=== PATIENT | female | born 1955 | race Hispanic/Latino ===

== ENCOUNTER 2016-07-31 11:58 | Emergency (ER) | payer MEDICAID ==
[2016-07-31 12:16] VITALS: TEMP 98.2; O2SAT 100
[2016-07-31 12:25] VITALS: BMI 40.4
--- NOTE | 2016-07-31 12:56 | ED PDOC ---
Arrival/HPI - General Chief Complaint: Trauma Time Seen by Provider: 07/31/16 12:14 Historian: Patient - History of Present Illness Narrative History of Present Illness (Text): 07/31/16 12:26 Janelle Smith is a 61 year old female who presents to the emergency department complaining of possible injury to ear and pain to right-sided head, shoulder, arm and hip s/p mechanical fall prior to arrival. Patient states that she tripped over something at home and smacked her head against the edge of a door. 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 She notes that she hears less in her right ear as well. Patient endorses that she took her daily medications this morning but did not take any pain medications after fall. Patient denies any malocclusion of the jaw, vision changes, or any other complaint at this time. PMD: Dr. Witt Time/Duration: Prior to Arrival Symptom Onset: Sudden Symptom Course: Unchanged Activities at Onset: Light Context: Home Past Medical History - Provider Review Nursing Documentation Reviewed: Yes - Infectious Disease Hx of Infectious Diseases: None - Tetanus Immunization Tetanus Immunization: Unknown - Pulmonary Hx Asthma: Yes - Musculoskeletal/Rheumatological Hx Arthritis: Yes - Gastrointestinal Other/Comment: Gastroproesis - Psychiatric Hx Substance Use: No - Past Surgical History Past Surgical History: No Previous - Surgical History Hx Dilation and Curettage: Yes Hx Tonsillectomy: Yes Other/Comment: R ear tube - Anesthesia Hx Anesthesia: Yes Hx Anesthesia Reactions: No Hx Malignant Hyperthermia: No - Suicidal Assessment Feels Threatened In Home Enviroment: No Family/Social History - Physician Review Nursing Documentation Reviewed: Yes Family/Social History: No Known Family HX Smoking Status: Never Smoked Hx Alcohol Use: No Hx Substance Use: No Hx Substance Use Treatment: No Allergies/Home Meds Allergies/Adverse Reactions: Allergies Sulfa (Sulfonamide Antibiotics) Allergy (Verified 06/09/15 16:01) bacitracin Allergy (Uncoded 06/09/15 16:01) dust Allergy (Uncoded 04/14/14 22:08) ITCHING mold Allergy (Uncoded 04/14/14 22:08) ITCHING Home Medications: Home Meds Medication Instructions Recorded Confirmed Fluticasone/Salmeterol 100/50 1 dsk IH BID 09/02/14 09/02/14 [Advair Diskus 100/50] Montelukast [Singulair] 10 mg PO DAILY 09/02/14 09/02/14 Omeprazole [Prilosec] 40 mg PO DAILY 09/02/14 09/02/14 Tiotropium [place] Inhaler 1 puff IH DAILY 09/02/14 09/02/14 [Spiriva Inhalation Handihaler Device] Review of Systems - Physician Review All systems were reviewed & negative as marked: Yes - Review of Systems Constitutional: Other (pain to right side of head). absent: Fevers, Night Sweats Eyes: absent: Vision Changes ENT: Hearing Changes, Other (possible injury to ear) Respiratory: absent: SOB Cardiovascular: absent: Chest Pain Gastrointestinal: absent: Abdominal Pain Genitourinary Female: absent: Urine Output Changes Musculoskeletal: Other (Pain to right shoulder, arm, and hip). absent: Back Pain, Neck Pain Skin: absent: Rash Neurological: absent: Headache Endocrine: absent: Polyuria Hemo/Lymphatic: absent: Easy Bleeding Psychiatric: absent: Depression Physical Exam - Physical Exam Narrative Physical Exam (Text): Constitutional: No acute distress. Head: Normocephalic. Atraumatic. Eyes: PERRL. EOMI without diplopia. ENT: Moist mucous membranes. Cerumen in right ear. Tympanic membrane and ear tube not visualized. Neck: No midline tenderness. Supple. Cardiovascular: Regular rate. Chest: No tenderness. Respiratory: Clear to auscultation bilaterally. GI: Soft. Nontender. Nondistended. Back: No midline tenderness. No CVA tenderness. Musculoskeletal: Tenderness to mid clavicle over AC joints. Full ROM of shoulder, elbow, wrist w/o swelling or tenderness. Tenderness over right hip and right thigh. Skin: No rash. Neurologic: Alert, no focal deficit. Sensation to light touch intact to bilateral face. Vital Signs Reviewed: Yes Vital Signs Temp Pulse Resp BP Pulse Ox 07/31/16 12:13 98.2 F 76 18 151/100 H 100 Temperature: Afebrile Blood Pressure: Hypertensive Pulse: Regular Respiratory Rate: Normal Appearance: Positive for: Well-Appearing, Non-Toxic, Comfortable Pain Distress: None Mental Status: Positive for: Alert and Oriented X 3 Medical Decision Making ED Course and Treatment: 07/31/16 12:26 Impression: 61 year old female complaining of possible injury to ear and pain to right- sided head, shoulder, arm and hip s/p mechanical fall prior to arrival. Plan: -- Head CT w/o contrast -- Right clavicle X-ray -- Right Femur X-ray -- Right Hip and pelvis X-ray -- Right shoulder X-ray -- Reassess and disposition Prior Visits: Notes and results from previous visits were reviewed. Patient last seen in ED on 06/09/15 for lymphedema p/w chest pain x 4 hours. Patient left against medical advice. Progress Notes: 07/31/16 12:26 Patient denied any pain medication. 07/31/16 14:[address] w/o Contrast: Creator : Ravin Ron MD FINDINGS: HEMORRHAGE:No intracranial hemorrhage. BRAIN:No mass effect or edema. No atrophy or chronic microvascular ischemic changes. VENTRICLES:Unremarkable. No hydrocephalus. CALVARIUM:Unremarkable. PARANASAL SINUSES:Unremarkable as visualized. No significant inflammatory changes. MASTOID AIR CELLS:Unremarkable as visualized. No inflammatory changes. OTHER FINDINGS:None. IMPRESSION: Normal CT of the Head. 07/31/16 14:10 Right Clavicle X-ray: Creator : Ravin Ron MD FINDINGS: RIGHT CLAVICLE:No fracture or focal lesion. JOINTS:Right acromioclavicular and glenohumeral joints are grossly unremarkable. SOFT TISSUES:Grossly unremarkable. OTHER FINDINGS:None. IMPRESSION: Normal radiographs of the right clavicle. 07/31/16 14:11 Right Shoulder X-ray: Creator : Ravin Ron MD FINDINGS: BONES:Normal. No fracture. JOINTS:Normal. Glenohumeral and acromioclavicular joints preserved. No osteoarthritis. SOFT TISSUES:Normal. OTHER FINDINGS:None. IMPRESSION: Normal radiographs of the right shoulder. 07/31/16 14:15 Right Femur X-ray Creator : Ravin Ron MD FINDINGS: FEMUR:Normal. No fracture. SOFT TISSUES:Normal. OTHER FINDINGS:None. IMPRESSION: Unremarkable radiographs of the right femur. 07/31/16 14:17 Right Hip X-ray: Creator : Mike Ellis MD FINDINGS: BONES:Normal. No fracture. JOINTS:Mild and symmetrical degenerative changes. SOFT TISSUES:Normal. OTHER FINDINGS:None. IMPRESSION: No acute findings related to/accounting for the clinical presentation. 07/31/16 14:19 Patient resting in stretcher in no acute distress. Will discharge home, f/u ENT , return to ER for worsening pain, discharge from ear, vomiting, or any other problem. - RAD Interpretation Radiology Orders: 07/31/16 12:37 HEAD W/O CONTRAST [CT] Stat CLAVICLE RIGHT [RAD] Stat Femur Right [FEMUR MIN 2 VIEWS RT] [RAD] Stat HIP MIN 2V W/ PELVIS RT [RAD] Stat SHOULDER RIGHT [RAD] Stat - Scribe Statement The provider has reviewed the documentation as recorded by the Jereibrazia Lennon Provider Scribe Attestation: All medical record entries made by the Scribe were at my direction and personally dictated by me. I have reviewed the chart and agree that the record accurately reflects my personal performance of the history, physical exam, medical decision making, and the department course for this patient. I have also personally directed, reviewed, and agree with the discharge instructions and disposition. Disposition/Present on Arrival - Present on Arrival Any Indicators Present on Arrival: No History of DVT/PE: No History of Uncontrolled Diabetes: No Urinary Catheter: No History of Decub. Ulcer: No History Surgical Site Infection Following: None - Disposition Have Diagnosis and Disposition been Completed?: Yes Diagnosis: Fall, Multiple contusions Disposition Time: 14:20 Patient Plan: Discharge Condition: STABLE Discharge Instructions (ExitCare): Head Injury (ED) Referrals: Lexx Cottrell DO [Staff Provider] - Follow up with primary
--- NOTE | 2016-07-31 13:58 | CT ---
PROCEDURE: CT HEAD WITHOUT CONTRAST. HISTORY: fall, headstrike COMPARISON: 04/14/[address] TECHNIQUE: Axial computed tomography images were obtained through the head/brain without intravenous contrast. Radiation dose: Total exam DLP = 700 mGy-cm. This CT exam was performed using one or more of the following dose reduction techniques: Automated exposure control, adjustment of the mA and/or kV according to patient size, and/or use of iterative reconstruction technique. FINDINGS: HEMORRHAGE: No intracranial hemorrhage. BRAIN: No mass effect or edema. No atrophy or chronic microvascular ischemic changes. VENTRICLES: Unremarkable. No hydrocephalus. CALVARIUM: Unremarkable. PARANASAL SINUSES: Unremarkable as visualized. No significant inflammatory changes. MASTOID AIR CELLS: Unremarkable as visualized. No inflammatory changes. OTHER FINDINGS: None. IMPRESSION: Normal CT of the Head.
--- NOTE | 2016-07-31 14:10 | RAD ---
PROCEDURE: Radiographs of the Right Shoulder HISTORY: fall, shoulder pain COMPARISON: No prior. FINDINGS: BONES: Normal. No fracture. JOINTS: Normal. Glenohumeral and acromioclavicular joints preserved. No osteoarthritis. SOFT TISSUES: Normal. OTHER FINDINGS: None. IMPRESSION: Normal radiographs of the right shoulder.
--- NOTE | 2016-07-31 14:10 | RAD ---
PROCEDURE: Radiographs of the right clavicle. HISTORY: fall, clavicular tenderness COMPARISON: None. FINDINGS: RIGHT CLAVICLE: No fracture or focal lesion. JOINTS: Right acromioclavicular and glenohumeral joints are grossly unremarkable. SOFT TISSUES: Grossly unremarkable. OTHER FINDINGS: None. IMPRESSION: Normal radiographs of the right clavicle.
--- NOTE | 2016-07-31 14:13 | RAD ---
PROCEDURE: Right Femur Radiographs. HISTORY: fall, lateral thigh pain COMPARISON: None. TECHNIQUE: AP and Lateral Radiographs of the right femur. FINDINGS: FEMUR: Normal. No fracture. SOFT TISSUES: Normal. OTHER FINDINGS: None. IMPRESSION: Unremarkable radiographs of the right femur.
--- NOTE | 2016-07-31 14:13 | RAD ---
PROCEDURE: Right Hip Radiographs. HISTORY: fall, R hip pain COMPARISON: None. FINDINGS: BONES: Normal. No fracture. JOINTS: Mild and symmetrical degenerative changes. SOFT TISSUES: Normal. OTHER FINDINGS: None. IMPRESSION: No acute findings related to/accounting for the clinical presentation.
[2016-07-31 15:04] VITALS: BP 147/90; PULSE 72; RESP 16
== END 2016-07-31 14:55 | disposition home or self-care (01) ==
LOC: ED 11:58
DX: S40.011A Contusion of right shoulder, initial encounter (principal); S70.01XA Contusion of right hip, initial encounter; S70.11XA Contusion of right thigh, initial encounter; W01.198A Fall on same level from slipping, tripping and stumbling with subsequent striking against other object, initial encounter; Y92.009 Unspecified place in unspecified non-institutional (private) residence as the place of occurrence of the external cause

== ENCOUNTER 2016-08-16 17:03 | Emergency (ER) | payer MEDICAID ==
[2016-08-16 17:03] VITALS: BMI 40.4
[2016-08-16 17:12] VITALS: BP 131/70; PULSE 78; RESP 19; TEMP 97.9; O2SAT 97
--- NOTE | 2016-08-16 17:34 | ED PDOC ---
Arrival/HPI - General Historian: Patient <Charleen Covarrubiasew - Last Filed: 08/16/16 17:36> - History of Present Illness Time/Duration: Other (3 days) Symptom Onset: Sudden Symptom Course: Unchanged Context: Home <Chau Persaud - Last Filed: 08/16/16 17:52> - General Chief Complaint: Trauma Time Seen by Provider: 08/16/16 17:08 - History of Present Illness Narrative History of Present Illness (Text): 08/16/16 17:32 This is a 61 yo F with PMH of asthma that presents to the ED with head pain s/p minor trauma from hitting head on counter while standing up 3 days ago. Pt had LOC. Denies dizziness, DURHAM, vision changes, weakness, chest pain, sob, nausea or vomiting. She also denies taking any "blood thinners" including ASA. PMD: Dr. Witt (Preston Covarrubias) Past Medical History - Provider Review Nursing Documentation Reviewed: Yes - Infectious Disease Hx of Infectious Diseases: None - Tetanus Immunization Tetanus Immunization: Unknown - Reproductive Menopause: Yes - Cardiac Hx Cardiac Disorders: No - Pulmonary Hx Respiratory Disorders: Yes Hx Asthma: Yes - Neurological Hx Neurological Disorder: No - HEENT Hx HEENT Disorder: No - Renal Hx Renal Disorder: No - Endocrine/Metabolic Hx Endocrine Disorders: No - Hematological/Oncological Hx Blood Disorders: No - Integumentary Hx Dermatological Disorder: No - Musculoskeletal/Rheumatological Hx Musculoskeletal Disorders: Yes Hx Arthritis: Yes - Gastrointestinal Hx Gastrointestinal Disorders: Yes Other/Comment: Gastroproesis - Genitourinary/Gynecological Hx Genitourinary Disorders: No - Psychiatric Hx Psychophysiologic Disorder: No Hx Substance Use: No - Past Surgical History Past Surgical History: No Previous - Surgical History Hx Dilation and Curettage: Yes Hx Tonsillectomy: Yes Other/Comment: R ear tube - Anesthesia Hx Anesthesia: Yes Hx Anesthesia Reactions: No Hx Malignant Hyperthermia: No - Suicidal Assessment Feels Threatened In Home Enviroment: No <Preston Covarrubias - Last Filed: 08/16/16 17:36> Family/Social History - Physician Review Nursing Documentation Reviewed: Yes Family/Social History: No Known Family HX Smoking Status: Never Smoked Hx Alcohol Use: No Hx Substance Use: No Hx Substance Use Treatment: No <Preston Covarrubias - Last Filed: 08/16/16 17:36> Allergies/Home Meds <Preston Covarrubias - Last Filed: 08/16/16 17:36> <Chau Persaud - Last Filed: 08/16/16 17:52> Allergies/Adverse Reactions: Allergies Sulfa (Sulfonamide Antibiotics) Allergy (Verified 08/16/16 17:07) RASH bacitracin Allergy (Uncoded 08/16/16 17:07) RASH dust Allergy (Uncoded 08/16/16 17:07) ITCHING mold Allergy (Uncoded 08/16/16 17:07) ITCHING Home Medications: Home Meds Medication Instructions Recorded Confirmed Fluticasone/Salmeterol 100/50 1 dsk IH BID 09/02/14 08/16/16 [Advair Diskus 100/50] Montelukast [Singulair] 10 mg PO DAILY 09/02/14 08/16/16 Omeprazole [Prilosec] 40 mg PO DAILY 09/02/14 08/16/16 Tiotropium [place] Inhaler 1 puff IH DAILY 09/02/14 08/16/16 [Spiriva Inhalation Handihaler Device] Review of Systems - Review of Systems Constitutional: Normal Eyes: Normal ENT: Normal Respiratory: Normal Cardiovascular: Normal Gastrointestinal: Normal Genitourinary Female: Normal Musculoskeletal: Normal Skin: Normal Neurological: Normal Endocrine: Normal Hemo/Lymphatic: Normal Psychiatric: Normal <Preston Covarrubias - Last Filed: 08/16/16 17:36> Physical Exam Temperature: Afebrile Blood Pressure: Normal Pulse: Regular Respiratory Rate: Normal Appearance: Positive for: Well-Appearing, Non-Toxic, Comfortable Pain Distress: None Mental Status: Positive for: Alert and Oriented X 3 - Systems Exam Head: Present: Atraumatic, Normocephalic, Tenderness (to palpation over area where she hit) Pupils: Present: PERRL Extroacular Muscles: Present: EOMI Mouth: Present: Moist Mucous Membranes Respiratory/Chest: Present: Clear to Auscultation, Good Air Exchange. No: Respiratory Distress Cardiovascular: Present: Regular Rate and Rhythm, Normal S1, S2 Abdomen: Present: Normal Bowel Sounds. No: Tenderness, Distention Upper Extremity: Present: NORMAL PULSES Lower Extremity: Present: NORMAL PULSES Neurological: Present: Speech Normal, Motor Func Grossly Intact Skin: Present: Warm, Dry Psychiatric: Present: Alert, Oriented x 3 <Preston Covarrubias - Last Filed: 08/16/16 17:36> Vital Signs Reviewed: Yes <Chau Persaud - Last Filed: 08/16/16 17:52> Vital Signs Temp Pulse Resp BP Pulse Ox 08/16/16 17:11 97.9 F 78 19 131/70 97 Medical Decision Making <Preston Covarrubias - Last Filed: 08/16/16 17:36> <Chau Persaud - Last Filed: 08/16/16 17:52> ED Course and Treatment: 08/16/16 17:40 61 to F with minor head trauma Plan: No neurological deficits, vision changes, DURHAM or any obvious trauma to area. Will discharge home with instructions to take OTC meds for the pain and follow up instructions Pt comfortable with plan (Preston Covarrubias) Patient Seen With Resident: In agreement with resident note which contains more details about the patient. Patient was seen and evaluated with resident. Came up with plan and treatment together. (Chau Persaud) Disposition/Present on Arrival - Present on Arrival Any Indicators Present on Arrival: No History of DVT/PE: No History of Uncontrolled Diabetes: No Urinary Catheter: No History of Decub. Ulcer: No History Surgical Site Infection Following: None - Disposition Have Diagnosis and Disposition been Completed?: Yes Disposition Time: 17:31 Patient Plan: Discharge <Preston Covarrubias - Last Filed: 08/16/16 17:36> <Chau Persaud - Last Filed: 08/16/16 17:52> - Disposition Diagnosis: Minor head injury Disposition: HOME/ ROUTINE Patient Problems: Current Active Problems Problem Status Onset Minor head injury Acute Condition: GOOD Discharge Instructions (ExitCare): Head Injury (ED) Additional Instructions: You were evaluated for a minor head injury. Take Tylenol or Advil for the pain. Please return to ED with any new or worsening symptoms. Referrals: Christiano Witt MD [Primary Care Provider] - Follow up with primary
== END 2016-08-16 17:15 | disposition home or self-care (01) ==
LOC: ED 17:03
DX: S09.90XA Unspecified injury of head, initial encounter (principal); W22.8XXA Striking against or struck by other objects, initial encounter; Y93.89 Activity, other specified; Y92.89 Other specified places as the place of occurrence of the external cause

== ENCOUNTER 2017-06-06 22:54 | Observation (INO) | payer MEDICAID ==
[2017-06-06 22:54] VITALS: BMI 40.4
--- NOTE | 2017-06-06 23:14 | ED PDOC ---
Arrival/HPI - General Time Seen by Provider: 06/06/17 23:03 Historian: Patient - History of Present Illness Narrative History of Present Illness (Text): 06/06/17 23:05 Janelle Smith is a 61 year old female, whose past medical history includes asthma, gastroparesis, GERD, and esophagitis, who presents to the Emergency department accompanied by spouse complaining of chest pain. Patient states while at home she was feeling unwell with associated dizziness and nausea when she began experiencing mid-sternal chest tightness. Patient reports some shortness of breath. Patient states she has not undergone a stress test in a long time. Patient denies any fever, chills, abdominal pain, vomiting, diarrhea , back pain, neck pain, headache, vision changes, focal neurological deficits, or any other complaints. Symptom Onset: Gradual Symptom Course: Unchanged Activities at Onset: Light Context: Home Past Medical History - Provider Review Nursing Documentation Reviewed: Yes - Infectious Disease Hx of Infectious Diseases: None - Tetanus Immunization Tetanus Immunization: Unknown - Cardiac Hx Cardiac Disorders: No - Pulmonary Hx Respiratory Disorders: Yes Hx Asthma: Yes - Neurological Hx Neurological Disorder: No - HEENT Hx HEENT Disorder: No - Renal Hx Renal Disorder: No - Endocrine/Metabolic Hx Endocrine Disorders: No - Hematological/Oncological Hx Blood Disorders: No - Integumentary Hx Dermatological Disorder: No - Musculoskeletal/Rheumatological Hx Musculoskeletal Disorders: Yes Hx Arthritis: Yes - Gastrointestinal Hx Gastrointestinal Disorders: Yes Other/Comment: Gastroproesis - Genitourinary/Gynecological Hx Genitourinary Disorders: No - Psychiatric Hx Psychophysiologic Disorder: No Hx Substance Use: No - Past Surgical History Past Surgical History: No Previous - Surgical History Hx Dilation and Curettage: Yes Hx Tonsillectomy: Yes Other/Comment: R ear tube - Anesthesia Hx Anesthesia: Yes Hx Anesthesia Reactions: No Hx Malignant Hyperthermia: No - Suicidal Assessment Feels Threatened In Home Enviroment: No Family/Social History - Physician Review Nursing Documentation Reviewed: Yes Family/Social History: Unknown Family HX Smoking Status: Never Smoked Hx Alcohol Use: No Hx Substance Use: No Hx Substance Use Treatment: No Allergies/Home Meds Allergies/Adverse Reactions: Allergies Sulfa (Sulfonamide Antibiotics) Allergy (Verified 06/06/17 23:14) RASH bacitracin Allergy (Uncoded 06/06/17 23:14) RASH dust Allergy (Uncoded 06/06/17 23:14) ITCHING mold Allergy (Uncoded 06/06/17 23:14) ITCHING Home Medications: Home Meds Medication Instructions Recorded Confirmed Fluticasone/Salmeterol 100/50 1 dsk IH BID 09/02/14 06/06/17 [Advair Diskus 100/50] Montelukast [Singulair] 10 mg PO DAILY 09/02/14 06/06/17 Omeprazole [Prilosec] 40 mg PO DAILY 09/02/14 06/06/17 Tiotropium [place] Inhaler 1 puff IH DAILY 09/02/14 06/06/17 [Spiriva Inhalation Handihaler Device] Review of Systems - Physician Review All systems were reviewed & negative as marked: Yes - Review of Systems Constitutional: Normal. absent: Fevers Eyes: Normal ENT: Normal Respiratory: SOB Cardiovascular: Chest Pain Gastrointestinal: Nausea. absent: Abdominal Pain, Vomiting Genitourinary Female: Normal. absent: Dysuria, Frequency, Hematuria, Urine Output Changes Musculoskeletal: Normal. absent: Back Pain, Neck Pain Skin: Normal Neurological: Dizziness Endocrine: Normal Hemo/Lymphatic: Normal Psychiatric: Normal Physical Exam Vital Signs Reviewed: Yes Vital Signs Temp Pulse Resp BP Pulse Ox 06/06/17 23:11 98.4 F 111 H 18 164/91 H 97 Temperature: Afebrile Blood Pressure: Hypertensive Pulse: Regular Respiratory Rate: Normal Appearance: Positive for: Well-Appearing, Non-Toxic, Comfortable Pain Distress: None Mental Status: Positive for: Alert and Oriented X 3 - Systems Exam Head: Present: Atraumatic, Normocephalic Pupils: Present: PERRL Extroacular Muscles: Present: EOMI Conjunctiva: Present: Normal Mouth: Present: Moist Mucous Membranes Neck: Present: Normal Range of Motion Respiratory/Chest: Present: Clear to Auscultation, Good Air Exchange. No: Respiratory Distress, Accessory Muscle Use Cardiovascular: Present: Regular Rate and Rhythm, Normal S1, S2. No: Murmurs Abdomen: Present: Normal Bowel Sounds. No: Tenderness, Distention, Peritoneal Signs Back: Present: Normal Inspection Upper Extremity: Present: Normal Inspection. No: Cyanosis, Edema Lower Extremity: Present: Normal Inspection. No: Edema Neurological: Present: GCS=15, CN II-XII Intact, Speech Normal Skin: Present: Warm, Dry, Normal Color. No: Rashes Psychiatric: Present: Alert, Oriented x 3, Normal Insight, Normal Concentration Medical Decision Making ED Course and Treatment: 06/06/17 23:05 Impression: 61 year old female complaining of chest tightness with associated dizziness, nausea, and some shortness of breath. Plan: -- EKG -- Chest X-ray -- Labs, cardiac enzymes -- Reassess and disposition Prior Visits: Notes and results from previous visits were reviewed. On 08/16/2016, pt was seen in the Emergency department for head pain s/p minor trauma. Pt was d/c home. Progress Notes: Reviewed EKG, NSR at 83 bpm. Inferior infarct. Non-specific ST/T wave changes. 06/07/17 00:37 Chest X-ray reviewed, shows no acute processes. 06/07/17 01:[address] Gross, who is aware and agrees with plan. Accepts pt in to hospitalist service. Pt will go to Telemetry observation for chest pain. executive vice president and chief operating officer notified. - Lab Interpretations Lab Results: 06/06/17 23:34 06/06/17 23:34 Lab Results 06/06/17 23:34: WBC 7.3 D, RBC 4.35, Hgb 13.1, Hct 39.1, MCV 89.9, MCH 30.1, MCHC 33.5, RDW 14.4, Plt Count 290, MPV 10.0 06/06/17 23:34: Sodium 138, Potassium 4.2, Chloride 102, Carbon Dioxide 28, Anion Gap 13, BUN 19, Creatinine 0.8, Est GFR ( Amer) > 60, Est GFR (Non- Af Amer) > 60, Random Glucose 110, Calcium 10.1, Total Bilirubin 0.3, AST 24, ALT 25, Alkaline Phosphatase 81, Lactate Dehydrogenase 432, Total Creatine Kinase 39, Troponin I < 0.01, Total Protein 7.3, Albumin 4.1, Globulin 3.2, Albumin/Globulin Ratio 1.3 06/06/17 23:34: PT 11.8, INR 1.03, APTT 31.0 I have reviewed the lab results: Yes - RAD Interpretation Radiology Orders: 06/06/17 23:09 CHEST PORTABLE [RAD] Stat Animal Husbandry Professor: ED Physician - EKG Interpretation Interpreted by ED Physician: Yes Type: 12 lead EKG - Medication Orders Current Medication Orders: Discontinued Medications Aspirin (Aspirin) 325 mg PO ONCE STA Stop: 06/06/17 23:36 Last Admin: 06/07/17 00:09 Dose: Not Given Non-Admin Reason: Patient Refused Morphine Sulfate (Morphine) 2 mg IVP STAT STA Stop: 06/06/17 23:43 Last Admin: 06/07/17 00:08 Dose: 2 mg MAR Pain Assessment Document 06/07/17 00:08 Ciro (Rec: 06/07/17 00:09 [facility] [id number]) Pain Reassessment Is this a pain reassessment? No Sleep Is patient sleeping during reassessment? No Presence of Pain Presence of Pain Yes Pain Scale Used Pain Scale Used Numeric Location Pain Location Body Site Chest Description Description Sharp Intensity of Pain at present 6 Acceptable Level of Pain 0 Pain Behavior Rubbing Site Aggravating Factors ADL's IVP Administration Document 06/07/17 00:08 KELLY (Rec: 06/07/17 00:09 [facility] [id number]) Charges for Administration # of IVP Administrations 1 Nitroglycerin (Nitro-Bid 2% Oint) 1 ea TOP ONCE STA Stop: 06/06/17 23:36 Last Admin: 06/07/17 00:07 Dose: 1 ea - Scribe Statement The provider has reviewed the documentation as recorded by the Radha Singh Provider Scribe Attestation: All medical record entries made by the Scribe were at my direction and personally dictated by me. I have reviewed the chart and agree that the record accurately reflects my personal performance of the history, physical exam, medical decision making, and the department course for this patient. I have also personally directed, reviewed, and agree with the discharge instructions and disposition. Disposition/Present on Arrival - Present on Arrival Any Indicators Present on Arrival: No History of DVT/PE: No History of Uncontrolled Diabetes: No Urinary Catheter: No History Surgical Site Infection Following: None - Disposition Have Diagnosis and Disposition been Completed?: Yes Diagnosis: Chest pain Disposition: HOSPITALIZED Disposition Time: Patient Plan: Observation Patient Problems: Current Active Problems Problem Status Onset Chest pain Acute Condition: STABLE Discharge Instructions (ExitCare): Chest Pain (ED)
[2017-06-06] MEDS ORDERED: Nitroglycerin 2% Ointment Foilpak UD TOP STA (23:35)
[2017-06-06] MEDS ORDERED: Morphine 4 mg/ml ISec IVP STA (23:42)
[2017-06-06 23:48] LABS: HEMOGLOBIN 13.1 g/dL (12.0-16.0); MEAN CELL VOLUME 89.9 fl (80.0-105.0); MEAN CORPUSCULAR HEMOGLOBIN 30.1 pg (25.0-35.0); MEAN CORPUSCULAR HGB CONC 33.5 g/dl (31.0-37.0); RBC 4.35 10^6/uL (3.5-6.1); RED CELL DISTRIBUTION WIDTH 14.4 % (11.5-14.5); WHITE BLOOD COUNT 7.3 10^3/ul (4.5-11.0)
[2017-06-07 00:06] LABS: ALB/GLOB RATIO 1.3 (1.1-1.8); ALBUMIN 4.1 g/dL (3.0-4.8); ALT/SGPT 25 U/L (7-56); AST/SGOT 24 U/L (14-36); BLOOD UREA NITROGEN 19 mg/dL (7-21); CALCIUM 10.1 mg/dL (8.4-10.5); GFR AFRICAN-AMERICAN > 60; GFR NON-AFRICAN AMERICAN > 60
[2017-06-07 00:19] LABS: TROPONIN I < 0.01 ng/mL
[2017-06-07 00:32] LABS: INR 1.03 (0.93-1.08); PROTHROMBIN TIME 11.8 SECONDS (9.4-12.5)
--- NOTE | 2017-06-07 02:17 | CP.PCM.HP ---
History of Present Illness - History of Present Illness History of Present Illness: CC: Chest pain Pt is a 61 yo F with PMH of Reyes's esophagus, gastroparesis, asthma, and lymphedema presents to ED due to CP around 10 pm. Pt states that she had just eaten chicken, green beans and drank hot chocolate when she began to have midsternal chest pain with no radiation. Pt states that normal her esophagitis pain feels as if its travelling up and down, however on this occasion pain remained midsternal. Pt also complained of associated nausea without vomiting, dizziness, and shortness of breath. Pt denied palpitations, diarrhea, constipation, tachycardia, fever, chills, abdominal pain, or headache. PMH: Reyes's esophagus, gastroparesis, asthma, and lymphedema Surg: right ear surgery All: Sulfa, bacitracin, shellfish FHx: father liver CA, grandmother CAD SH: Admitted social EtOH use, denied tobacco and illicit drug use Present on Admission - Present on Admission Any Indicators Present on Admission: No Review of Systems - Review of Systems Review of Systems: 12 point ROS reviewed and is negative other than what is stated in HPI. Past Patient History - Infectious Disease Hx of Infectious Diseases: None - Tetanus Immunizations Tetanus Immunization: Unknown - Past Social History Smoking Status: Never Smoked - CARDIAC Hx Cardiac Disorders: No - PULMONARY Hx Respiratory Disorders: Yes Hx Asthma: Yes - NEUROLOGICAL Hx Neurological Disorder: No - HEENT Hx HEENT Problems: No - RENAL Hx Chronic Kidney Disease: No - ENDOCRINE/METABOLIC Hx Endocrine Disorders: No - HEMATOLOGICAL/ONCOLOGICAL Hx Blood Disorders: No - INTEGUMENTARY Hx Dermatological Problems: No - MUSCULOSKELETAL/RHEUMATOLOGICAL Hx Musculoskeletal Disorders: Yes Hx Arthritis: Yes - GASTROINTESTINAL Hx Gastrointestinal Disorders: Yes Other/Comment: Gastroproesis - GENITOURINARY/GYNECOLOGICAL Hx Genitourinary Disorders: No - PSYCHIATRIC Hx Psychophysiologic Disorder: No Hx Substance Use: No - SURGICAL HISTORY Hx Dilation and Curettage: Yes Hx Tonsillectomy: Yes Other/Comment: R ear tube - ANESTHESIA Hx Anesthesia: Yes Hx Anesthesia Reactions: No Hx Malignant Hyperthermia: No Meds Allergies/Adverse Reactions: Allergies Allergy/AdvReac Type Severity Reaction Status Date / Time Sulfa (Sulfonamide Allergy RASH Verified 06/06/17 23:14 Antibiotics) bacitracin Allergy RASH Uncoded 06/06/17 23:14 dust Allergy ITCHING Uncoded 06/06/17 23:14 mold Allergy ITCHING Uncoded 06/06/17 23:14 Physical Exam - Constitutional Appears: No Acute Distress - Head Exam Head Exam: NORMAL INSPECTION - Eye Exam Eye Exam: Normal appearance - ENT Exam ENT Exam: Normal Exam - Neck Exam Neck exam: Positive for: Normal Inspection - Respiratory Exam Respiratory Exam: Clear to Auscultation Bilateral. absent: Rales, Rhonchi, Wheezes - Cardiovascular Exam Cardiovascular Exam: Tachycardia, +S1, +S2. absent: Diastolic murmur, Gallop, Rubs, Systolic Murmur Additional comments: Reproducible midsternal CP - GI/Abdominal Exam GI & Abdominal Exam: Soft. absent: Distended, Guarding, Rebound, Tenderness - Extremities Exam Additional comments: b/l LE lymphedema - Back Exam Back exam: NORMAL INSPECTION - Neurological Exam Neurological exam: Alert, Oriented x3 - Psychiatric Exam Psychiatric exam: Normal Affect, Normal Mood - Skin Skin Exam: Dry, Intact, Normal Color, Warm Results - Vital Signs Recent Vital Signs: Last Vital Signs Temp 98.3 F 06/07/17 01:30 Pulse 81 06/07/17 01:30 Resp 18 06/07/17 01:30 BP 145/83 06/07/17 01:30 Pulse Ox 97 06/07/17 01:30 - Labs Result Diagrams: 06/06/17 23:34 06/06/17 23:34 Assessment & Plan - Assessment and Plan (Free Text) Assessment: 61 yo F with PMH of Reyes's esophagus, gastroparesis, asthma, and lymphedema admitted for chest pain. Plan: 1. CP r/o ACS - Troponin negative x1, trend x2 - EKG showed NSR - CXR negative - Cardiology consulted - HgbA1c, lipid panel, TSH ordered - Echo ordred 2. H/o Reyes's Esophagitis - Protonix 3. Asthma - Home medications continued GI/DVT PPx - Protonix - SCDs Pt discussed in detail with Dr. Gross. Judd Smith, PGY1
[2017-06-07 02:52] LABS: HDL CHOLESTEROL 55 mg/dL (29-60)
[2017-06-07 03:02] LABS: LDL CHOLESTEROL 88 mg/dL (0-129)
[2017-06-07 03:24] VITALS: RESP 20
[2017-06-07] MEDS: Budesonide 0.25 mg/2 ml Inhal Susp UD IH SCH ×2 (07:27→20:10)
[2017-06-07] MEDS: Arformoterol 15 mcg/2 ml Inh Sol IH SCH ×2 (07:27→20:10)
--- NOTE | 2017-06-07 08:28 | RAD ---
HISTORY: chest pain COMPARISON: 06/09/2015 FINDINGS: LUNGS: No active pulmonary disease. PLEURA: No significant pleural effusion identified, no pneumothorax apparent. CARDIOVASCULAR: Normal. OSSEOUS STRUCTURES: No significant abnormalities. VISUALIZED UPPER ABDOMEN: Normal. OTHER FINDINGS: None. IMPRESSION: No active disease.
[2017-06-07] MEDS: Tiotropium 18 mcg Cap For Inhalation IH SCH (09:29)
[2017-06-07] MEDS ORDERED: Fluticasone-Salmeterol 100-50mcg Diskus IH SCH (10:00)
--- NOTE | 2017-06-07 10:02 | CARD ---
APPROVED REPORT EKG Measurement Heart [id number] <Conclusion> Normal sinus rhythm Q in Lead 3, Small Q AVF.
--- NOTE | 2017-06-07 11:26 | CON ---
DATE: 06/07/2017 CONSULTATION INDICATIONS: Chest pain. HISTORY OF PRESENT ILLNESS: This is a 61-year-old woman with Reyes's esophagus, gastroparesis, and asthma, who is admitted through the emergency room yesterday when she came in complaining of chest discomfort. This was a mid-chest discomfort, which began after eating dinner, which included hot chocolate, which she thinks irritated her esophagus. However, the pain was different than esophageal pain that she has had in the past. This was more in the upper chest, it did not radiated, it was not associated with shortness of breath. It lasted for an hour or more. It resolved slowly. This morning, she has no symptoms including no chest pain. There was no orthopnea, PND, syncope, presyncope, lightheadedness, dizziness or vertigo. No palpitations, fever, chills, cough, sputum production, or hemoptysis. No abdominal pain, nausea, vomiting, diarrhea, constipation, melena. She has chronic lymphedema. PAST MEDICAL HISTORY: Notable for Reyes's esophagus, gastroparesis, asthma, lymphedema. A remote stress test, which was unremarkable. There is no history of rheumatic fever, myocardial infarction, angina, arrhythmia, congestive heart failure, stroke, TIA, diabetes, hypertension, hyperlipidemia or gout. MEDICATIONS AT THE TIME OF ADMISSION: Include Advair, Prilosec, Singulair, Spiriva. MEDICATION ALLERGIES: SHE NOTES AN ALLERGY TO SULFA MEDICATIONS, BACITRACIN AND SHELLFISH. SOCIAL HISTORY: She does not smoke. She did not drink alcohol significantly. She lives at home with her . She is ambulatory. FAMILY HISTORY: Notable for heart disease in her grandmother. REVIEW OF SYSTEMS: Ten-point review of systems otherwise unremarkable except as noted above. PHYSICAL EXAMINATION: GENERAL: She is a well-developed woman, lying in bed on telemetry, in no acute distress. VITAL SIGNS: Notable for sinus rhythm in the 80s. She is afebrile. Blood pressure 128/64, respirations 20, O2 sat 96-97% on room air. HEENT: Reveals no neck vein distention, thyromegaly, carotid bruits. Mucous membranes moist. Conjunctivae pink. NECK: Supple. LUNGS: Lung mccormick, scattered rhonchi. HEART: Reveals normal first and second heart sounds. I did not appreciate a murmur, gallop, rub or click. PMI was not displaced. ABDOMEN: Soft. Bowel sounds present. No mass, organomegaly, tenderness, rebound or guarding. No CVA tenderness. No palpable abdominal aortic aneurysm. EXTREMITIES: Revealed no cyanosis, clubbing or edema. NEUROLOGIC: Awake, alert and oriented. SKIN: Warm and dry. There is chronic lymphedema noted. LABORATORY AND IMAGING: A portable chest x-ray revealed no active disease. The EKG demonstrated regular sinus rhythm, right ventricular conduction delay, no acute changes. No change from a previous EKG. CBC is unremarkable. PT, INR, PTT, unremarkable. Electrolytes, BUN, creatinine, LFTs, all unremarkable. CK is 39. Two troponins are negative. Total cholesterol 172, LDL 88, triglycerides 97, HDL 55. IMPRESSION: Janelle Smith is a 61-year-old woman with known gastrointestinal disorders including Reyes's esophagus and gastroesophageal reflux disease, who presents with an unusual upper chest discomfort following a meal, which included hot chocolate. The symptoms have subsided. There were no acute changes on the electrocardiogram and two troponins are negative. At this time, I agree with current plans. She got aspirin. She is getting her breathing medications. She could be out of bed. An echocardiogram is ordered. If there is no further chest pain, I will anticipate early discharge with an outpatient nuclear stress test, which I have discussed with her. I will review the echocardiogram. I will make additional recommendations based on her clinical course. Denis Barroso MD [facility]
--- NOTE | 2017-06-07 23:51 | CARD ---
APPROVED REPORT EKG Measurement Heart [id number] <Conclusion> Normal sinus rhythm Incomplete right bundle branch block Borderline ECG
[2017-06-08 06:05] VITALS: O2SAT 97
[2017-06-08 06:30] LABS: HEMOGLOBIN 11.7 g/dL (12.0-16.0); MEAN CELL VOLUME 90.2 fl (80.0-105.0); MEAN CORPUSCULAR HEMOGLOBIN 29.5 pg (25.0-35.0); MEAN CORPUSCULAR HGB CONC 32.8 g/dl (31.0-37.0); MEAN PLATELET VOLUME 10.1 fl (7.0-11.0); RBC 3.96 10^6/uL (3.5-6.1); RED CELL DISTRIBUTION WIDTH 14.8 % (11.5-14.5); WHITE BLOOD COUNT 5.3 10^3/ul (4.5-11.0)
[2017-06-08 06:52] LABS: ALB/GLOB RATIO 1.1 (1.1-1.8); ALBUMIN 3.3 g/dL (3.0-4.8); ALT/SGPT 24 U/L (7-56); AST/SGOT 21 U/L (14-36); BLOOD UREA NITROGEN 12 mg/dL (7-21); CALCIUM 9.1 mg/dL (8.4-10.5); GFR AFRICAN-AMERICAN > 60; GFR NON-AFRICAN AMERICAN > 60
--- NOTE | 2017-06-08 07:48 | CP.PCM.PN ---
Subjective - Date & Time of Evaluation Date of Evaluation: 06/08/17 Time of Evaluation: 07:00 - Subjective Subjective: Stable on 2R. She feels better. No CP or SOB. Some more typical esophageal "burning" now present. V/S noted. RSR. PE: Lungs: clear Cor.: S1S2 Abd.: soft Ext.: no edema Neuro.: alert Labs noted. trops neg. X3 ECG 06/07/17: RSR, RVCD, no change Echo done. Will read. Prelom> Nl LV. See full report. Objective - Vital Signs/Intake and Output Vital Signs (last 24 hours): Temp Pulse Resp BP Pulse Ox 98.7 F 82 20 141/75 97 06/08/17 06:00 06/08/17 06:00 06/08/17 06:00 06/08/17 06:00 06/08/17 06:00 - Medications Medications: Current Medications Arformoterol Tartrate (Brovana) 15 mcg IH [id number] [facility] Last Admin: 06/07/17 20:10 Dose: 15 mcg Aspirin (Aspirin Chewable) 81 mg PO DAILY [facility] Last Admin: 06/07/17 09:29 Dose: 81 mg Budesonide (Pulmicort Respules) 0.25 mg IH [id number] [facility] Last Admin: 06/07/17 20:10 Dose: 0.25 mg Montelukast Sodium (Singulair) 10 mg PO HS [facility] Last Admin: 06/07/17 22:57 Dose: 10 mg Pantoprazole Sodium (Protonix Ec Tab) 40 mg PO ACB [facility] Tiotropium [place] (Spiriva) 18 mcg IH DAILY [facility] Last Admin: 06/07/17 09:29 Dose: 18 mcg - Labs Labs: 06/08/17 05:20 06/08/17 05:20 PT 11.8 SECONDS (9.4-12.5) 06/06/17 23:34 INR 1.03 (0.93-1.08) 06/06/17 23:34 APTT 31.0 Seconds (25.1-36.5) 06/06/17 23:34 Assessment and Plan - Assessment and Plan (Free Text) Assessment: Chest Pain H/O Reyes's esophagus, GERD, Gastroparesis Asthma Lymphedema Plan: Nuclear stress test today. OOB ad alejandro. If neg ETT > GI F/U and Tx.
[2017-06-08] MEDS: Budesonide 0.25 mg/2 ml Inhal Susp UD IH SCH (07:57)
[2017-06-08] MEDS: Arformoterol 15 mcg/2 ml Inh Sol IH SCH (07:57)
--- NOTE | 2017-06-08 08:31 | CARD ---
APPROVED REPORT EXAM: Two-dimensional and M-mode echocardiogram with Doppler and color Doppler. Other Information Quality : GoodRhythm : INDICATION Chest Pain 2D DIMENSIONS Left Atrium (2D)4.3 (1.6-4.0cm)IVSd1.0 (0.7-1.1cm) LVDd4.7 (3.9-5.9cm)PWd1.0 (0.7-1.1cm) LVDs3.2 (2.5-4.0cm)FS (%) 31.0 % LVEF (%)58.0 (>50%) M-Mode DIMENSIONS Aortic Root3.00 (2.2-3.7cm)Aortic Cusp Exc.1.70 (1.5-2.0cm) Aortic Valve AoV Peak Gbocguwu441.0cm/sAoV VTI44.1cmLVOT Peak Womwmmjr960.0cm/s LVOT VTI23.70cm Mitral Valve MV E Bqfsoqqr96.9cm/sMV A Vejglzhv402.0cm/sE/A ratio1.0 TDI Lateral E' Peak V12.50cm/sMedial E' Peak V10.30cm/sE/Lateral E'7.8 E/Medial E'9.4 Pulmonary Valve PV Peak Hptfxzzg11.9cm/sPV Peak Grad.4mmHg Tricuspid Valve TR Peak Aeuwrwcl327hp/sRAP [id number] Peak Gr.35mmHg [id number] LEFT VENTRICLE The left ventricle is normal size. There is normal left ventricular wall thickness. The left ventricular function is normal. The left ventricular ejection fraction is within the normal range. There is normal LV segmental wall motion. RIGHT VENTRICLE The right ventricle is normal size. ATRIA The left atrium is borderline dilated. The right atrium size is normal. AORTIC VALVE The aortic valve is normal in structure. MITRAL VALVE The mitral valve is normal in structure. Mitral regurgitation is mild. TRICUSPID VALVE The tricuspid valve is normal in structure. There is trace to mild tricuspid regurgitation. PULMONIC VALVE The pulmonic valve is not well visualized. GREAT VESSELS The aortic root is normal in size. PERICARDIAL EFFUSION There is no pericardial effusion. <Conclusion> The left ventricle is normal size. There is normal left ventricular wall thickness. The left ventricular function is normal. Mitral regurgitation is mild. There is trace to mild tricuspid regurgitation.
[2017-06-08] MEDS: Pantoprazole 40 mg EC Tab PO SCH ×2 (08:59→11:42)
[2017-06-08] MEDS ORDERED: Aminophylline 25 mg/ml Inj ONE (09:12)
[2017-06-08] MEDS: Tiotropium 18 mcg Cap For Inhalation IH SCH (11:42)
[2017-06-08 12:00] VITALS: BP 136/72; TEMP 98
--- NOTE | 2017-06-08 12:44 | CP.PCM.DIS ---
<AnibalJennie - Last Filed: 06/08/17 19:01> Provider - Provider Date of Admission: 06/07/17 01:26 Attending physician: Aixa Mazariegos MD Primary care physician: Kiet Hernandez MD Consults: Cardio: Dharmesh Time Spent in preparation of Discharge (in minutes): 35 Diagnosis - Discharge Diagnosis (1) Reflux esophagitis Status: Chronic Priority: Low (2) Chest pain Status: Acute Priority: High Hospital Course - Lab Results Lab Results: Most Recent Lab Values WBC 5.3 10^3/ul (4.5-11.0) D 06/08/17 05:20 RBC 3.96 10^6/uL (3.5-6.1) 06/08/17 05:20 Hgb 11.7 g/dL (12.0-16.0) L 06/08/17 05:20 Hct 35.7 % (36.0-48.0) L 06/08/17 05:20 MCV 90.2 fl (80.0-105.0) 06/08/17 05:20 MCH 29.5 pg (25.0-35.0) 06/08/17 05:20 MCHC 32.8 g/dl (31.0-37.0) 06/08/17 05:20 RDW 14.8 % (11.5-14.5) H 06/08/17 05:20 Plt Count 255 10^3/uL (120.0-450.0) 06/08/17 05:20 MPV 10.1 fl (7.0-11.0) 06/08/17 05:20 PT 11.8 SECONDS (9.4-12.5) 06/06/17 23:34 INR 1.03 (0.93-1.08) 06/06/17 23:34 APTT 31.0 Seconds (25.1-36.5) 06/06/17 23:34 Sodium 142 mmol/L (132-148) 06/08/17 05:20 Potassium 4.0 mmol/L (3.6-5.0) 06/08/17 05:20 Chloride 109 mmol/L (98-107) H 06/08/17 05:20 Carbon Dioxide 26 mmol/L (21-33) 06/08/17 05:20 Anion Gap 12 (10-20) 06/08/17 05:20 BUN 12 mg/dL (7-21) 06/08/17 05:20 Creatinine 0.6 mg/dl (0.7-1.2) L 06/08/17 05:20 Est GFR ( Amer) > 60 06/08/17 05:20 Est GFR (Non-Af Amer) > 60 06/08/17 05:20 Random Glucose 92 mg/dL (70-110) 06/08/17 05:20 Hemoglobin A1c 5.5 % (4.2-6.5) 06/06/17 23:34 Calcium 9.1 mg/dL (8.4-10.5) 06/08/17 05:20 Phosphorus 4.1 mg/dL (2.5-4.5) 06/08/17 05:20 Magnesium 2.0 mg/dL (1.7-2.2) 06/08/17 05:20 Total Bilirubin 0.3 mg/dL (0.2-1.3) 06/08/17 05:20 AST 21 U/L (14-36) 06/08/17 05:20 ALT 24 U/L (7-56) 06/08/17 05:20 Alkaline Phosphatase 57 U/L (38-126) 06/08/17 05:20 Lactate Dehydrogenase 432 U/L (333-699) 06/06/17 23:34 Total Creatine Kinase 39 U/L (35-230) 06/06/17 23:34 Troponin I < 0.01 ng/mL 06/07/17 11:30 Total Protein 6.2 g/dL (5.8-8.3) 06/08/17 05:20 Albumin 3.3 g/dL (3.0-4.8) 06/08/17 05:20 Globulin 2.9 gm/dL 06/08/17 05:20 Albumin/Globulin Ratio 1.1 (1.1-1.8) 06/08/17 05:20 Triglycerides 97 mg/dL (35-160) 06/06/17 23:34 Cholesterol 172 mg/dL (130-200) 06/06/17 23:34 LDL Cholesterol Direct 88 mg/dL (0-129) 06/06/17 23:34 HDL Cholesterol 55 mg/dL (29-60) 06/06/17 23:34 TSH 3rd Generation 1.65 mIU/mL (0.46-4.68) 06/08/17 05:20 - Hospital Course Hospital Course: Pt is a 61 yo F with PMH of Reyes's esophagus, gastroparesis, asthma, and lymphedema who initially presented to ED due to CP on the day prior to admission. Pain started after a meal and felt different than the burning pain that she normally gets with her reflux. She had ACS workup and was seen by cardiology, who did an echocardiogram and a nuclear stress test. ACS was ruled out with serial troponins and repeat EKGs. Today, patient does report retrosternal burning which is the same as the reflux symptoms she always has. She denies shortness of breath, palpitations, nausea, vomiting, diaphoresis, or dyspnea on exertion. She had the nuclear stress test this morning, which she tolerated well, and now she feels well overall. She was given instructions on follow up with her PMD, her GI doctor, and Dr. Barroso for cardiology. All questions were answered to her satisfaction, and she was discharged to home. Discharge Exam - Head Exam Head Exam: NORMAL INSPECTION - Eye Exam Eye Exam: EOMI, Normal appearance, PERRL - ENT Exam ENT Exam: Mucous Membranes Moist - Neck Exam Neck exam: Full Rom, Normal Inspection - Respiratory Exam Respiratory Exam: Clear to PA & Lateral, NORMAL BREATHING PATTERN - Cardiovascular Exam Cardiovascular Exam: RRR, +S1, +S2. absent: Bradycardia, Tachycardia - GI/Abdominal Exam GI & Abdominal Exam: Normal Bowel Sounds, Soft. absent: Tenderness - Extremities Exam Additional comments: Bilateral nonpitting edema ankles to hips - Neurological Exam Neurological exam: Alert, CN II-XII Intact, Oriented x3 - Psychiatric Exam Psychiatric exam: Normal Affect, Normal Mood - Skin Skin Exam: Dry, Intact, Normal Color Discharge Plan - Discharge Medications Prescriptions: Aspirin [Aspirin Chewable] 81 mg PO DAILY #14 chew - Follow Up Plan Condition: STABLE Disposition: HOME/ ROUTINE Instructions: Acid Reflux (Gastroesophageal Reflux Disease), Adult (DC), Chest Pain (DC) Additional Instructions: Follow up with Dr. Jerome, primary care doctor, within one week Follow up with Dr. Barroso within 2 weeks. Patient can call Dr. Barroso's office tomorrow for stress test result. [address] [place] [address] Office Follow up with GI doctor, Dr Soriano, outpatient in 1-2 weeks for persistent heart burn symptoms Continue to take all previously prescribed medications as prescribed Take your omeprazole twice daily for the next month, or until you see your GI doctor if sooner For any new or worsening concerns, contact your PCP immediately, or return to the ER New Medication Aspirin 81 mg daily Referrals: Denis Barroso MD [Staff Provider] - Kiet Hernandez MD [Primary Care Provider] - Flex Soriano MD [Medical Doctor] - <Aixa Mazariegos - Last Filed: 06/09/17 07:21> Provider - Provider Date of Admission: 06/07/17 01:26 Attending physician: Aixa Mazariegos MD Primary care physician: Kiet Hernandez MD Hospital Course - Lab Results Lab Results: Most Recent Lab Values WBC 5.3 10^3/ul (4.5-11.0) D 06/08/17 05:20 RBC 3.96 10^6/uL (3.5-6.1) 06/08/17 05:20 Hgb 11.7 g/dL (12.0-16.0) L 06/08/17 05:20 Hct 35.7 % (36.0-48.0) L 06/08/17 05:20 MCV 90.2 fl (80.0-105.0) 06/08/17 05:20 MCH 29.5 pg (25.0-35.0) 06/08/17 05:20 MCHC 32.8 g/dl (31.0-37.0) 06/08/17 05:20 RDW 14.8 % (11.5-14.5) H 06/08/17 05:20 Plt Count 255 10^3/uL (120.0-450.0) 06/08/17 05:20 MPV 10.1 fl (7.0-11.0) 06/08/17 05:20 PT 11.8 SECONDS (9.4-12.5) 06/06/17 23:34 INR 1.03 (0.93-1.08) 06/06/17 23:34 APTT 31.0 Seconds (25.1-36.5) 06/06/17 23:34 Sodium 142 mmol/L (132-148) 06/08/17 05:20 Potassium 4.0 mmol/L (3.6-5.0) 06/08/17 05:20 Chloride 109 mmol/L (98-107) H 06/08/17 05:20 Carbon Dioxide 26 mmol/L (21-33) 06/08/17 05:20 Anion Gap 12 (10-20) 06/08/17 05:20 BUN 12 mg/dL (7-21) 06/08/17 05:20 Creatinine 0.6 mg/dl (0.7-1.2) L 06/08/17 05:20 Est GFR ( Amer) > 60 06/08/17 05:20 Est GFR (Non-Af Amer) > 60 06/08/17 05:20 Random Glucose 92 mg/dL (70-110) 06/08/17 05:20 Hemoglobin A1c 5.5 % (4.2-6.5) 06/06/17 23:34 Calcium 9.1 mg/dL (8.4-10.5) 06/08/17 05:20 Phosphorus 4.1 mg/dL (2.5-4.5) 06/08/17 05:20 Magnesium 2.0 mg/dL (1.7-2.2) 06/08/17 05:20 Total Bilirubin 0.3 mg/dL (0.2-1.3) 06/08/17 05:20 AST 21 U/L (14-36) 06/08/17 05:20 ALT 24 U/L (7-56) 06/08/17 05:20 Alkaline Phosphatase 57 U/L (38-126) 06/08/17 05:20 Lactate Dehydrogenase 432 U/L (333-699) 06/06/17 23:34 Total Creatine Kinase 39 U/L (35-230) 06/06/17 23:34 Troponin I < 0.01 ng/mL 06/07/17 11:30 Total Protein 6.2 g/dL (5.8-8.3) 06/08/17 05:20 Albumin 3.3 g/dL (3.0-4.8) 06/08/17 05:20 Globulin 2.9 gm/dL 06/08/17 05:20 Albumin/Globulin Ratio 1.1 (1.1-1.8) 06/08/17 05:20 Triglycerides 97 mg/dL (35-160) 06/06/17 23:34 Cholesterol 172 mg/dL (130-200) 06/06/17 23:34 LDL Cholesterol Direct 88 mg/dL (0-129) 06/06/17 23:34 HDL Cholesterol 55 mg/dL (29-60) 06/06/17 23:34 TSH 3rd Generation 1.65 mIU/mL (0.46-4.68) 06/08/17 05:20 Attending/Attestation - Attestation I have personally seen and examined this patient.: Yes I have fully participated in the care of the patient.: Yes I have reviewed all pertinent clinical information, including history, physical exam and plan: Yes Notes (Text): 06/08/17 61 year old female with past medical history of Reyes's esophagus who presented with complaint of chest pain. Serial cardiac enzymes were negative and ACS was ruled out. She was seen by cardiology and underwent stress test which was essentially negative. She is discharged home to follow up with pmd. Follow up with assistant professor of radiology. Aixa Mazariegos MD Hospitalist.
[2017-06-08] MEDS ORDERED: Pneumococcal 23-Valent Vaccine IM ONE (14:36)
[2017-06-08] MEDS ORDERED: Influenza Vaccine 60 mcg/0.5 mL SYR (4YR UP) IM ONE (14:36)
--- NOTE | 2017-06-08 15:01 | CARD ---
APPROVED REPORT Protocol: LEXISCAN Test Type: Lexiscan Sestamibi Stress Test Attending Physician: Dr. Denis Barroso Referring Physician: Dr. Tate Blanco Test Indications: Chest Pain Height:4 ft 11 in Weight:212lbs Medications: Brovana, Aspirin, Pulmicort, Singulair, Protonix, Spiriva Medical History: 61 y/o woman with chest pain, H/O GERD, Reyes's Esophagus and asthma. Target HR: 159 bpm Resting ECG: RSR Resting Heart Rate: 78 bpm Resting Blood Pressure: 140/82mmHg Submaximum (85%): 135 bpm PROCEDURE Pharmacologic stress testing was performed using 0.4mg per 5ml of regadenoson given intravenously over 7-10 seconds. POST EXERCISE Reason for Termination: Protocol completed Target HR: No Max HR: 93 bpm 70% of Maximum Predicted HR: 159 bpm Exercise duration: 05:05 min:sec, 0 Stage Exercise capacity: 1.0METs Max Blood Pressure: 140/82mmHg Blood Pressure response to exercise: normal resting BP - appropriate response Heart Rate response to exercise: appropriate Chest Pain: No, none Angina index: 0 Arrhythmia: No, none ST Change: No, none Deviation: 0 mm TEST SUMMARY [id number]/82.0. INFUSIONDOSE 101:[id number]/.0.00:28 Colleen inj over 10 sec, Mitchel inj at 25 sec INFUSIONDOSE 201:[id number]/76.0. INFUSIONDOSE 301:[id number]/76.0. INFUSIONDOSE 401:000.00.01.0100/.0. INFUSIONDOSE 501:000.00.01.095/.0. INFUSIONDOSE 600:050.00.01.093/.0. [id number]:130.00.01.0./.0. INTERPRETATION Stress EKG Conclusion: Lexiscan nuclear stress test which was negative for chest pain, ischemia and arrhythmia. Nuclear scans pending. Signed by Denis Barroso Electronically Approved: 06/08/2017 10:54:53 EXAM: Myocardial Perfusion REST/STRESS Stress Test Type: Pharmacologic Imaging Protocol Rest Spect myocardial perfusion imaging was performed in supine position 45 minutes following the injection of 10.9 mCi of Tc-99 Myoview. At peak stress, the patient was injected intravenously with 30.9mCi of Tc-99 tetrofosmin after an infusion time of 0 minutes and 10 seconds. Gated Stress Spect was performed 65 minutes after intravenous Tc-99 Myoview injection. The images were gated to evaluate regional wall motion and calculate ventricular ejection fraction.Images were reconstructed using backfilter projection method in short horizontal and verticle long axis. Spect slices were generated. LV Perfusion The quality of the study is good. The left ventricle is normal in size. The right ventricle is unremarkable. The lung uptake is normal. The distribution of tracer reveals mildly and diffusely decreased perfusion involving anterior wall on the stress study. The remainder of the LV myocardium is unremarkable. The rest myocardial perfusion study shows no significant change. Wall Motion Wall motion study shows good contractility of the left ventricle. LVEF = 71%. Conclusion 1. Essentially normal SPECT myocardial perfusion study. 2. Fixed, anterior defect is most likely due to breast attenuation. 3. Normal gated wall motion of the left ventricle.
[2017-06-08 15:42] VITALS: PULSE 96
== END 2017-06-08 15:49 | disposition home or self-care (01) ==
LOC: ED 22:54 → ERH 06-07 01:26 → 2RNO 06-07 02:43
PROVIDERS: ADMIT Internal Medicine; ATTEND Internal Medicine
DX: K21.0 Gastro-esophageal reflux disease with esophagitis (principal); R07.9 Chest pain, unspecified; K31.84 Gastroparesis; J45.909 Unspecified asthma, uncomplicated; K22.70 Barrett's esophagus without dysplasia; I89.0 Lymphedema, not elsewhere classified; Z23 Encounter for immunization; Z88.2 Allergy status to sulfonamides
CPT/HCPCS: 36415; 71045; 78452; 80053; 80061; 82550; 83036; 83615; 83735; 84100; 84443; 84484; 85027; 85610; 85730; 90471; 90674; 90732; 93005; 93017; 93306; 94640; 94760; 96374; 99285; A9502; C9113; G0378; J2270; J2785

== ENCOUNTER 2017-09-08 12:01 | Emergency (ER) | payer MEDICAID ==
[2017-09-08 12:02] VITALS: BMI 40.4
[2017-09-08 12:20] VITALS: RESP 18; TEMP 98.3; O2SAT 100
--- NOTE | 2017-09-08 13:02 | ED PDOC ---
Arrival/HPI - General Chief Complaint: Lower Extremity Problem/Injury Time Seen by Provider: 09/08/17 12:21 Historian: Patient, Spouse - History of Present Illness Narrative History of Present Illness (Text): you were treated in the ED today for having hx of lipid edema, prior right knee injury/menisical injury and has been favoring the right lower leg with left pain and using a cane to walk with left knee pop sensation but otherwise without any nausea/vomiting/headache/dizziness/difficulty breathing/chest pain/ abdomen pain/numbness/tingling/calf pain/pain with urination/travel/prior blood clots/prior cancer/hormonal use. Time/Duration: > week (2) Symptom Onset: Gradual Symptom Course: Unchanged Quality: Aching Severity Level: 2 Activities at Onset: Rest Context: Sitting Past Medical History - Provider Review Nursing Documentation Reviewed: Yes - Travel History Have you recently traveled outside [place] w/in the past 3 mons?: No - Infectious Disease Hx of Infectious Diseases: None - Tetanus Immunization Tetanus Immunization: Unknown - Reproductive Menopause: Yes - Cardiac Hx Cardiac Disorders: No - Pulmonary Hx Respiratory Disorders: Yes Hx Asthma: Yes - Neurological Hx Neurological Disorder: No - HEENT Hx HEENT Disorder: No - Renal Hx Renal Disorder: No - Endocrine/Metabolic Hx Endocrine Disorders: No - Hematological/Oncological Hx Blood Disorders: No - Integumentary Hx Dermatological Disorder: No - Musculoskeletal/Rheumatological Hx Musculoskeletal Disorders: Yes Hx Arthritis: Yes - Gastrointestinal Hx Gastrointestinal Disorders: Yes Other/Comment: Gastroproesis - Genitourinary/Gynecological Hx Genitourinary Disorders: No - Psychiatric Hx Psychophysiologic Disorder: No Hx Substance Use: No - Past Surgical History Past Surgical History: No Previous - Surgical History Hx Dilation and Curettage: Yes Hx Tonsillectomy: Yes Other/Comment: R ear tube - Anesthesia Hx Anesthesia: Yes Hx Anesthesia Reactions: No Hx Malignant Hyperthermia: No - Suicidal Assessment Feels Threatened In Home Enviroment: No Family/Social History - Physician Review Nursing Documentation Reviewed: Yes Family/Social History: No Known Family HX Smoking Status: Never Smoked Hx Alcohol Use: No Hx Substance Use: No Hx Substance Use Treatment: No Allergies/Home Meds Allergies/Adverse Reactions: Allergies Sulfa (Sulfonamide Antibiotics) Allergy (Verified 09/08/17 12:41) RASH bacitracin Allergy (Uncoded 09/08/17 12:41) RASH dust Allergy (Uncoded 09/08/17 12:41) ITCHING mold Allergy (Uncoded 09/08/17 12:41) ITCHING Home Medications: Home Meds Medication Instructions Recorded Confirmed Fluticasone/Salmeterol 100/50 1 dsk IH BID 09/02/14 09/08/17 [Advair Diskus 100/50] Montelukast [Singulair] 10 mg PO DAILY 09/02/14 09/08/17 Omeprazole [Prilosec] 40 mg PO DAILY 09/02/14 09/08/17 Tiotropium Trenary Inhaler 1 puff IH DAILY 09/02/14 09/08/17 [Spiriva Inhalation Handihaler Device] Review of Systems - Review of Systems Constitutional: Normal Eyes: Normal ENT: Normal Respiratory: Normal Cardiovascular: Normal Gastrointestinal: Normal Genitourinary Female: Normal Musculoskeletal: Arthralgias Skin: Normal Neurological: Normal Endocrine: Normal Hemo/Lymphatic: Normal Psychiatric: Normal Physical Exam Vital Signs Reviewed: Yes Vital Signs Temp Pulse Resp BP Pulse Ox 09/08/17 12:02 98.3 F 87 18 143/64 100 Temperature: Afebrile Blood Pressure: Hypertensive Pulse: Regular Respiratory Rate: Normal Appearance: Positive for: Well-Appearing, Non-Toxic, Comfortable Pain Distress: None Mental Status: Positive for: Alert and Oriented X 3 - Systems Exam Head: Present: Atraumatic, Normocephalic Pupils: Present: PERRL Extroacular Muscles: Present: EOMI Conjunctiva: Present: Normal Ears: Present: Normal Mouth: Present: Moist Mucous Membranes Pharnyx: Present: Normal Nose (External): Present: Atraumatic Nose (Internal): Present: Normal Inspection Neck: Present: Normal Range of Motion, Other (no c-t-l spinal or paraspinal tenderness) Respiratory/Chest: Present: Clear to Auscultation, Good Air Exchange Cardiovascular: Present: Regular Rate and Rhythm Abdomen: No: Tenderness, Distention, Normal Bowel Sounds, Peritoneal Signs, Rebound, Guarding, McBurney's Point Tender, Rovsing's Sign Present, Hernias, Feeding Tubes, Ostomy Tubes, Mass/Organomegaly, Scars, Other Back: Present: Normal Inspection Upper Extremity: Present: Normal Inspection Lower Extremity: Present: Other (eft knee no specific tenderness and without redness and no laxity and otherwise pink/warm/sensation/good distal pulses without calf tenderness) Neurological: Present: GCS=15, CN II-XII Intact, Speech Normal, Motor Func Grossly Intact Skin: Present: Warm, Normal Color Psychiatric: Present: Alert, Oriented x 3, Normal Insight, Normal Concentration Medical Decision Making ED Course and Treatment: you were treated in the ED today for having hx of lipid edema, prior right knee injury/menisical injury and has been favoring the right lower leg with left pain and using a cane to walk with left knee pop sensation but otherwise without any nausea/vomiting/headache/dizziness/difficulty breathing/chest pain/ abdomen pain/numbness/tingling/calf pain/pain with urination/travel/prior blood clots/prior cancer/hormonal use. You were otherwise breathing easily, smiling and talking with your , good strength/sensation, walking with a cane, clear lungs, no abdomen tenderness, skin no redness, left knee no specific tenderness and without redness and no laxity and otherwise pink/warm/sensation/ good distal pulses without calf tenderness, no fever temp 98.3, stable heart rate 87, stable breathing rate 18, excellent oxygen level 100% room air, elevated blood pressure 143/64 which we recommend repeat in 2-3 days primary care office to determine further treatment, left knee xray radiology with area of degeneration and questionable injury thus recommend knee immoblizer, motrin, observation, done in the ED with improvement, counselled to rest left lower extremity, continue to use cane for support and thus discharged home with . 1. Recommend follow-up primary care 1-2 days to review symptoms, get final xray report, referral to orthopedics clinic to review your symptoms/ ensure no complications/cancer development. 4. If any worsening pain, fever, chills, nausea, vomiting, difficulty breathing, numbness, loss of limb function , pain with urination or any medical condition then return to the ED. 09/08/17 12:58 09/08/17 13:03 09/08/17 14:10 Reassessment Condition: Re-examined, Improved - RAD Interpretation Radiology Orders: 09/08/17 12:56 KNEE LEFT 2 VIEWS (AP & LAT) [RAD] Stat Clinical Services Director: ED Physician (left knee xray with cortical areas/degeneration) - Medication Orders Current Medication Orders: Discontinued Medications Ibuprofen (Motrin Tab) 800 mg PO STAT STA Stop: 09/08/17 12:57 Last Admin: 09/08/17 13:10 Dose: 800 mg MAR Pain/Vitals Document 09/08/17 13:10 LA (Rec: 09/08/17 13:10 LA [facility] [place] Pain Reassessment Is This A Pain ReAssessment? No Sleep Is patient sleeping during reassessment? No Presence of Pain Presence of Pain Yes Pain Scale Used Pain Scale Used Numeric Location Left, Right or Bilateral Left Pain Location Body Site Knee Intensity 5 Scale Used Numeric Pain Behavior Guarding Disposition/Present on Arrival - Present on Arrival Any Indicators Present on Arrival: No History of DVT/PE: No History of Uncontrolled Diabetes: No Urinary Catheter: No History of Decub. Ulcer: No History Surgical Site Infection Following: None - Disposition Have Diagnosis and Disposition been Completed?: Yes Diagnosis: Knee pain, left Disposition: HOME/ ROUTINE Disposition Time: 14:11 Patient Plan: Discharge Condition: IMPROVED Discharge Instructions (ExitCare): Knee Pain (DC) Additional Instructions: you were treated in the ED today for having hx of lipid edema, prior right knee injury/menisical injury and has been favoring the right lower leg with left pain and using a cane to walk with left knee pop sensation but otherwise without any nausea/vomiting/headache/dizziness/difficulty breathing/chest pain/ abdomen pain/numbness/tingling/calf pain/pain with urination/travel/prior blood clots/prior cancer/hormonal use. You were otherwise breathing easily, smiling and talking with your , good strength/sensation, walking with a cane, clear lungs, no abdomen tenderness, skin no redness, left knee no specific tenderness and without redness and no laxity and otherwise pink/warm/sensation/ good distal pulses without calf tenderness, no fever temp 98.3, stable heart rate 87, stable breathing rate 18, excellent oxygen level 100% room air, elevated blood pressure 143/64 which we recommend repeat in 2-3 days primary care office to determine further treatment, left knee xray radiology with area of degeneration and questionable injury thus recommend knee immoblizer, motrin, observation, done in the ED with improvement, counselled to rest left lower extremity, continue to use cane for support and thus discharged home with . 1. Recommend follow-up primary care 1-2 days to review symptoms, get final xray report, referral to orthopedics clinic to review your symptoms/ ensure no complications/cancer development. 4. If any worsening pain, fever, chills, nausea, vomiting, difficulty breathing, numbness, loss of limb function , pain with urination or any medical condition then return to the ED. Forms: [employer] (Finnish)
[2017-09-08 14:40] VITALS: BP 140/62; PULSE 85
--- NOTE | 2017-09-09 08:46 | RAD ---
PROCEDURE: Left Knee Radiographs. HISTORY: Pain. COMPARISON: None. FINDINGS: BONES: Normal. No fracture. JOINTS: Tricompartmental osteoarthritis. Joint space narrowing. No articular erosion. JOINT EFFUSION: None. OTHER FINDINGS: None. IMPRESSION: Tricompartmental osteoarthritis.
== END 2017-09-08 14:40 | disposition home or self-care (01) ==
LOC: ED 12:01
DX: M25.562 Pain in left knee (principal)

== ENCOUNTER 2018-07-07 17:14 | Outpatient (CLI) | payer MEDICAID | END 2018-07-07 17:15 | disposition home or self-care (01) | LOC: RAD 17:14 ==